=== PATIENT | female | born 1965 | race Caucasian/White ===

== ENCOUNTER → 2017-06-05 | Outpatient (CLI) | payer BC, OTHER | END | disposition home or self-care (01) | LOC: PICC 10:16 | DX: Z01.818 Encounter for other preprocedural examination (principal) | CPT/HCPCS: C1753 ==

== ENCOUNTER → 2017-06-12 | Outpatient (CLI) | payer BC, OTHER | END | disposition home or self-care (01) | LOC: PICC 10:20 | DX: Z01.818 Encounter for other preprocedural examination (principal) | CPT/HCPCS: C1753 ==

== ENCOUNTER 2017-10-28 15:36 | Emergency (ER) | payer OTHER, BC ==
[~2017-10-28] VITALS: Ht 167.6 cm; Wt 92.4 kg
[~2017-10-28 15:36] MED LIST: ASPIRIN81 M2 PO; BARACLUDE0.5 MG PO; HYDROCHLOROTHIA25 MG PO; LASIX20 MG PO; MAGNESIUM400 M1 PO; MYCOPHENOLIC A180 MG PO; PERCOCET 5/31 TABLET PO; PROGRAF0.5 MG PO; PROTONIX40 MG PO; TOPROL XL50 MG PO
[2017-10-28 17:13] LABS: HEMATOCRIT 33.6 % (36.0-46.0); HEMOGLOBIN 11.5 G/DL (11.9-15.5); MCH 30.3 PG (29.0-34.0); MCHC 34.2 G/DL (30.0-36.0); MCV 88.4 FL (83-99); PLATELET COUNT 183 K/uL (156-360); RBC DIS.WIDTH-CV 12.6 % (11.8-14.6); RBC DIS.WIDTH-SD 40.6 % (39-53)
[2017-10-28 17:24] LABS: ALBUMIN 3.7 g/dL (3.2-4.8); CHLORIDE 106 mEq/L (99-109); POTASSIUM 3.4 mEq/L (3.7-5.4); SODIUM 141 mEq/L (136-147)
[2017-10-28 17:25] LABS: PTT 27.1 SEC (25-37)
[2017-10-28 17:27] LABS: GLUCOSE 100 mg/dL (70-99); TOTAL PROTEIN 6.4 g/dL (6.4-8.3)
[2017-10-28 17:29] LABS: TOTAL BILIRUBIN 0.3 mg/dL (0.0-1.0)
[2017-10-28 17:30] LABS: ALKALINE PHOSPHATASE 64 IU/L (3-129); CREATININE 1.2 mg/dL (0.6-1.3); GFR ESTIMATE (CALCULATED) 51 mL/min/; SERUM ETHYL ALCOHOL < 10 mg/dL
[2017-10-28 17:32] LABS: AST (GOT) 16 IU/L (2-34); UREA NITROGEN (BUN) 34 mg/dL (9-23)
[2017-10-28 17:33] LABS: ALT (GPT) 11 IU/L (3-49)
[2017-10-28 19:41] LABS: TROP-I INTERPRETATION NEGATIVE; TROPONIN-I < 0.01 ng/mL (0.0-0.30)
[2017-10-28 20:14] LABS: TROP-I INTERPRETATION NEGATIVE; TROPONIN-I < 0.01 ng/mL (0.0-0.30)
[2017-10-28] MEDS ORDERED: ROXICODONE5 MG PO (20:56)
[2017-10-28 21:26] VITALS: BP 149/97
== END 2017-10-28 21:27 | disposition home or self-care (01) ==
LOC: EME 15:36
PROVIDERS: Emergency Medicine
DX: S22.21XA Fracture of manubrium, initial encounter for closed fracture (principal); S20.212A Contusion of left front wall of thorax, initial encounter; Z94.4 Liver transplant status; V49.10XA Passenger injured in collision with unspecified motor vehicles in nontraffic accident, initial encounter; Y92.415 Exit ramp or entrance ramp of street or highway as the place of occurrence of the external cause; I10 Essential (primary) hypertension; M79.7 Fibromyalgia; Z79.82 Long term (current) use of aspirin; Z88.8 Allergy status to other drugs, medicaments and biological substances
CPT/HCPCS: 71260; 72125; 74177; 80053; 84484; 85027; 85610; 85730; 93005; 99281; 99285; G0480; J3010; J7030